=== PATIENT | female | born 1970 | race Caucasian/White ===

== ENCOUNTER 2017-02-10 18:14 | Inpatient (IN) | payer OTHER ==
[~2017-02-10] VITALS: Ht 172.7 cm; Wt 84.1 kg
--- NOTE | 2017-02-10 18:29 | NUR ---
PT BROUGHT IN TO ER BY [facility] VIA AMBULANCE. PER MEDIC, PT FOUND UNCONSIOUS AT HOME APPROX 45 MINS PRIOR TO ARRIVAL. PER MEDIC, PT TOOK HALF A BOTTLE OF NORCO STATING SHE WANTED TO HURT HERSELF.
--- NOTE | 2017-02-10 18:40 | NUR ---
PT PLACED ON 5150 HOLD BY [place] [employer] OFFICER TUCKER. HOLD PLACED IN PT CHART. PER OFFICER PD WAS CALLED OUT HOUSE APPROX 45MINS PRIOR TO EMS BEING CALLED FOR POSSIBLE SUICIDAL IDEATIONS, PD DID NOT PLACE PT ON HOLD AT THAT TIME AND STATES CCRT WAS ON SCENE WELL WHEN PD LEFT.
[2017-02-10 18:58] LABS: BASOPHIL % 0.2 % (0-2); PLATELET COUNT 232 x10^3mcL (130-400)
[2017-02-10 19:05] LABS: CALCIUM 8.4 mg/dL (8.5-10.1); CARBON DIOXIDE 33.5 mmol/L (21-32); CHLORIDE SERUM 104 mmol/L (98-107); CREATININE SERUM 0.8 mg/dL (0.6-1.0); GFR1 > 60 mL/min; GLUCOSE SERUM 86 mg/dL (74-106); POTASSIUM SERUM 4.1 mmol/L (3.5-5.1); SODIUM SERUM 139 mmol/L (136-145)
[2017-02-10 19:09] LABS: ALKALINE PHOSPHATASE 53 U/L (46-116); ALT/SGPT 30 U/L (14-59); AST/SGOT 19 U/L (15-37); BILIRUBIN TOTAL 0.4 mg/dL (0.20-1.00)
--- NOTE | 2017-02-10 19:12 | NUR ---
PT TOLERATED INSERTION OF GASTON CATH. STERILE TECHNIQUE USED. URINE SAMPLE SENT TO LAB
--- NOTE | 2017-02-10 19:15 | NUR ---
REPORT GIVEN TO PAUL SUMMERS.
[2017-02-10 19:16] LABS: ALBUMIN 3.2 g/dL (3.4-5.0); TOTAL PROTEIN, SERUM 5.9 g/dL (6.4-8.2)
[2017-02-10 19:17] LABS: microscopic required? YES; urine erythrocyte TRACE (NEGATIVE)
[2017-02-10] MEDS ORDERED: NITROFURANTOIN100 MG PO (19:20)
[2017-02-10] MEDS ORDERED: ULTRAM50 MG PO (19:20)
[2017-02-10] MEDS ORDERED: PREDNISONE1 MG PO (19:21)
--- NOTE | 2017-02-10 19:21 | NUR ---
FAMILY AT BEDSIDE VISITING WITH PT.
[2017-02-10] MEDS ORDERED: CYMBALTA30 M1 PO (19:22)
[2017-02-10] MEDS ORDERED: HYDROXYCHLOROQ200 MG PO (19:23)
[2017-02-10] MEDS ORDERED: HYDROCODONE BIT1 T30 (19:24)
[2017-02-10] MEDS ORDERED: PAXIL10 MG PO (19:26)
[2017-02-10 19:30] LABS: AMPHETAMINE QUAL UR POSITIVE (NEG <=1000)
[2017-02-10 19:30] LABS: T3 TOTAL 0.82 ng/mL
[2017-02-10 19:41] LABS: FREE T4 0.89 ng/dL (0.76-1.46); FREE THYROXINE INDEX 2.3 ug/dL (1.4-4.5)
[2017-02-10 20:27] LABS: MAGNESIUM 2.2 mg/dL (1.8-2.4); PHOSPHOROUS 4.4 mg/dL (2.5-4.9)
--- NOTE | 2017-02-10 20:34 | NUR ---
PT REPORT GIVEN TO WINTER, EXT [id number]. QUESTIONS AND CONCERNS ADDRESSED.
[2017-02-10 21:18] VITALS: BP 97/64
--- NOTE | 2017-02-10 21:29 | NUR ---
RECIEVED PATIENT FROM ED VIA GUERNEY, PATIENT UNABLE TO RESPOND TO ANSWERS, RESPONSIVE TO VERBAL AND TACTILE STIMULI, TELE # 30 SR, FAMILY AT BEDSIDE, NO C/O PAIN OR SOB AT THIS TIME, IV ACCESS TO LAC WNL, ORIENTED PATIENT TO ROOM AND SURROUNDINGS, BED IN LOW POSITION, BED RAILS UP X 2, CALL LIGHT WITHIN REACH, WILL ENDORSE CARE TO PRIMARY NURSE HUSSEIN SUMMERS
[2017-02-10 21:51] LABS: RED BLOOD CELLS 3.38 M/mm3 (4.10-5.10); TOTAL IRON BINDING CAPACITY 398 ug/dL (250-450)
[2017-02-10 21:52] LABS: IRON 29 ug/dL (50-170)
--- NOTE | 2017-02-10 22:23 | NUR ---
Lethargic. Opens eyes once in a while. No resp.distress noted. No cues of pain. Family at the bedside. On 5150. Sitter present.
[2017-02-11 01:12] LABS: BILIRUBIN DIRECT 0.11 mg/dL (0.0-0.2); BILIRUBIN TOTAL 0.36 mg/dL (0.20-1.00)
[2017-02-11 01:13] LABS: ALBUMIN 2.8 g/dL (3.4-5.0); TOTAL PROTEIN, SERUM 5.4 g/dL (6.4-8.2)
--- NOTE | 2017-02-11 03:26 | NUR ---
Awake at this time. Feeling hungry. Started on clear liquid diet. Jello given and tolerated well. No n/v noted. Will cont.to monitor.
--- NOTE | 2017-02-11 04:06 | NUR ---
Afebrile. No SOB noted. Denies pain. Awake and verbally responsive. SCD in place. Safety maintained. Remained on 5150 hold.
[2017-02-11 06:27] LABS: CALCIUM 8.3 mg/dL (8.5-10.1); CARBON DIOXIDE 28.9 mmol/L (21-32); CHLORIDE SERUM 105 mmol/L (98-107); CREATININE SERUM 0.7 mg/dL (0.6-1.0); GFR1 > 60 mL/min; GLUCOSE SERUM 88 mg/dL (74-106); POTASSIUM SERUM 3.8 mmol/L (3.5-5.1); SODIUM SERUM 138 mmol/L (136-145)
[2017-02-11 06:51] LABS: BASOPHIL % 0.5 % (0-2); PLATELET COUNT 206 x10^3mcL (130-400)
[2017-02-11 06:54] LABS: RED CELL DISTRIBUTION WIDTH 15.6 % (11.5-14.5)
--- NOTE | 2017-02-11 07:30 | NUR ---
PT DROWSY BUT OPENS EYES TO VERBAL STIMULI. ABLE TO SAY NAME AND . SPEECH SLOW AND SOFT TONE. GALE 3MM SLUGGISH. TEMP 98.1. TELE #30 SINUS RHYTHM RATE 70. RESP 16 EVEN. BREATH SOUNDS CLEAR. NO COUGH OR SOB. CONTINUOUS PULSE OX IN PLACE 100% ON 2L NC. HOB ELEVATED. ASPIRATION PRECAUTIONS. ABD SOFT, BOWEL TONES PRESENT. GASTON CATH DRAINS YELLOW URINE. TRACE EDEMA BLE. FAMILY STATES "THE LEGS GET SWOLLEN BECAUSE OF HER LUPUS." SCD IN PLACE. IV PATENT RIGHT HAND INFUSING NORMAL SALINE 100CC/HR. PT ON 5150. RESIDENTIAL COORDINATOR AT BEDSIDE TO MAINTAIN SAFETY. BED ALARM ON. FAMILY AT BEDSIDE. SIDE RAILS UP X2. CALL LIGHT IN REACH.
--- NOTE | 2017-02-11 08:25 | NUR ---
DR GONZALEZ AND MEDICAL TEAM IN ON ROUNDS. DISCUSSED PLAN OF CARE WITH PT AND FAMILY. TO CONTINUE TO OBSERVE PT RESP STATUS WITH CONTINUOUS, START ON CLEAR LIQ DIET. FATHER AND FAMILY AT BEDSIDE. QUESTIONS ANSWERED.
[2017-02-11 09:57] VITALS: BP 122/86
--- NOTE | 2017-02-11 10:40 | NUR ---
PT AWAKE, SITTING ON EDGE OF HER BED, AGITATED, PARANOID AND STATES "I WANT TO LEAVE AMA. WHERE IS DR RICHARDSON MY REGULAR DR. WHERE ARE MY HOME MEDICATIONS AND MY CELL PHONE." FATHER AND SISTER AT BEDSIDE. PT ALERT TO PERSON AND BUT CONTINUES TO BE FORGETFUL TO DATE, TIME AND PLACE. CALL TO DR PERRIN. MEDS REVIEWED. ALSO UPDATED WITH PTS PCP AND DR GOODWIN WHO SHE SEES. PT REQUESTS NORCO, CYMBALTA AND TRAMADOL THAT SHE TAKES FOR HER FIBROMYALGIA AND LUPUS. STATES "I GO THROUGH WITHDRAWLS IF I DONT TAKE IT." CUFF MAKER AT BEDSIDE TO MONITOR FOR SAFETY. CALL LIGHT IN REACH.
--- NOTE | 2017-02-11 10:45 | NUR ---
DR PERRIN HERE TO SPEAK WITH PT AND FAMILY. PRIMARY NURSE ALSO IN ROOM. PT PARANOID RE:LACK OF SUPPORT FROM FAMILY, HOME SITUATION, PTS OWN MEDICAL ISSUES. PT ACCUSES FAMILY OF MULTIPLE ISSUES AND CALLING THEM "LIARS. I DONT WANT YOU IN MY ROOM, GET YOUR THINGS AND GET OUT." DUE TO PATIENTS PARANOID STATE AT THIS MOMENT, FAMILY ASKED TO LEAVE ROOM TO GIVE PT TIME TO CALM HERSELF DOWN AND REFOCUS. DR PERRIN AND PRIMARY NURSE SAT WITH PT TO ALLOW HER TO VENT RE:HEALTH ISSUES WITH LUPUS AND FIBROMYALGIA, HOME SITUATION GEMA WITH 10 YEAR OLD SON, AND FAMILY SUPPORT AND INVOLEMENT IN HER LIFE. TEARFUL.
--- NOTE | 2017-02-11 11:00 | NUR ---
PT REFUSES PAXIL AND MACROBID, STATES "I DONT TAKE PAXIL, I ONLY TAKE MACROBID WHEN I HAVE A UTI. I DONT NEED IT NOW."
--- NOTE | 2017-02-11 11:11 | NUR ---
PER DR AYDIN BAEZ TO ADMINISTER NORCO ORDERED FOR C/O JOINT PAIN FROM LUPUS 04/26. GASTON CATH REMOVED ORDERED. IV CONTINUES PATENT. PT REMOVED CONTINUOUS PULSE OX. NO RESP DISTRESS AT THIS TIME. WILL CONTINUE TO MONITOR INTERMITTANTLY. AWAITING DR LEWIS EVALUATION. PT AGREEABLE TO SPEAK WITH DR LEWIS. FAMILY HAS GONE DOWN TO LOBBY TO GIVE PT SPACE AND TIME TO COMPOSE HERESELF. TOOL REPAIR TECHNICIAN AT BEDSIDE. [facility]. SNACK PROVIDED PRIOR TO LUNCH AT 1230. WILL CONTINUE TO OBSERVE.
--- NOTE | 2017-02-11 11:30 | NUR ---
GASTON CATH REMOVED ORDERED BY DR PERRIN.
--- NOTE | 2017-02-11 11:50 | NUR ---
PT SLEEPING. INDUSTRIAL MANAGEMENT TEACHER CONTINUES WITH SINUS RHYTHM. EASILY AROUSABLE, OPENS EYES TO VERBAL STIMULATION. WILL CONTINUE TO OBSERVE.
--- NOTE | 2017-02-11 12:30 | NUR ---
PT ABLE TO SIT AT SIDE OF BED FOR LUNCH MEAL. STATES "SO HUNGRY." REMAINS PARANOID AND TEARFUL AT TIMES RE:HOME SITUATION. ALLOWED TO VERBALIZE FEELINGS. CONTINUES ON 515, THERAPIST RADIATION AT BEDSIDE.
--- NOTE | 2017-02-11 14:30 | NUR ---
DR ARELLANO IN TO SPEAK WITH PT.
--- NOTE | 2017-02-11 14:42 | NUR ---
Initial Nutrition Assessment Dx: polysubstance abuse, 5150 PMHx: SLE, Fibromyalgia. PSHx: (Hysterectomy 2yrs ago), gastric bypass 10yr ago Labs: (02/11). Ca:8.3L, Alb:2.8L, HDL:89H, H/H:8.8/27L Meds: Colace, Prednisone, NS IVF, Prilosec, Zofran. Diet:Clear liquid PO Intake:02/10: 2 jello, 2 crackers, L:1 jello(02/11) L:>75% Ht: 68in, 5'8 Wt: 185#, 84kg BMI: 28.2kg/m2 (overweight) IBW:154#,70kg %IBW: 120% UBW:185# Age:46 Food Allergies:None Skin: intact Francois:20 Edema:trace to BLE. GI: Last BM:02/11 Nursing Trigger: unintentional wt loss>10# in past month. Pt was admitted with toxic encepholapathy 2/2 polysubctance intoxication. Pt was placed on a 5150 hold for suicidal ideation, per H&P. During visit, pt was kept asking when she was going to get discharged and how she wanted her phone. Observed pt eating her lunch and pt stated she has a fair appetite with no c/o N/V/D/C. Problem with: N:No V:No D: No C:No Problems with: Chewing:No Swallowing: No Current appetite: fair Recent wt change:no %wt change:0% Vitamin/Supplement use:MVI Special diet at home:Regular Physical activity:No Education: Pt declined education Estimated Nutritional Needs Based on current body weight 84kg Energy: 2100-2520kcal/d (25-30kcal/kg for adult maintenance) Protein: 67.2-84g/d (0.8-1.0 for adult maintenance) Fluid: 5725-0377 ml/d (1 ml/kcal) or per doctor Nutrition Diagnosis 1. Overweight related to possibly sedenatary lifestyle and overconsumption of kcals as evidenced by BMI:28.2kg/m2. Intervention 1.Recommend advance to regular diet as tolerated. 2. Encourage PO intake. Monitor/Evaluate Goal: PO intake at least 75% of estimated needs Monitor: PO intake, Labs, GI function F/U in 7 days as low risk:02/18
--- NOTE | 2017-02-11 15:10 | NUR ---
PT OOB, PULLED OUT IV AND TOOK OFF TELE MONITOR. PT ANXIOUS. STATES "WANTS TO GO HOME. I AM NOT GETTING MY REGULAR MEDICATIONS. I AM GOING THROUGH WITHDRAWLS FROM NOT TAKING MY NORCO AND ULTRAM LIKE I SHOULD." REVIEWED MED SCHEDULE AND REINFORCED NEED TO REMAIN IN HOSPITAL SHE IS ON 5150. PT UPSET, WANTING TO LEAVE. PAGE TO DR PERRIN.
--- NOTE | 2017-02-11 15:15 | NUR ---
HERE. ENTERERD PT ROOM WITH NURSE. PT BECAME VERBALLY ABUSIVE AND RAN OUT OF ROOM. ENCOURAGED PT TO RETURN TO ROOM BUT RAN DOWN HALLWAY LOOKING FOR ELEVATOR. PAGE TO SECURITY. PT ENDED UP ON 2N IN ELEVATOR THE DOORS WERE OPEN. SECURITY ARRIVED AND ENTERED ELEVATOR WITH PT. DOORS LOCKED OPEN. RN AND DR PERRIN AND DR ARELLANO ALSO NOW PRESENT IN ELEVATOR TRYING TO SPEAK WITH PT AND CALM HER DOWN. PT TEARFUL. STATES "I WANT TO GO HOME NOW. I WANT TO HAVE MY REGULAR MEDICATIONS. I WANT TO SPEAK WITH DR RICHARDSON AND MY THERAPIST."
--- NOTE | 2017-02-11 15:45 | NUR ---
PT REMAINS IN ELEVATOR WITH STAFF. DR PERRIN CALLED AND SPOKE WITH DR RICHARDSON TO REVIEW MEDICATIONS. DR ARELLANO ALSO SPOKE WITH DR RICHARDSON. MEDICATIONS REVIEWED WITH PT REPORTED BY DR RICHARDSON. SENT UP PTS CELL PHONE AND GIVEN TO PT.
--- NOTE | 2017-02-11 16:00 | NUR ---
PT IN AGREEMENT AT THIS TIME TO RETURN TO ROOM. ANXIOUS TO HAVE HER NORCO ORDERED. IV #22 ANGIO RESTARTED TO RAC AND IVF RESUMED NORMAL SALINE 100CC/HR. PT ASSISTED UP TO BATHROOM. BACK TO BED. MADE COMFORTABLE. CORPORATE ADMINISTRATIVE ASSISTANT AT BEDSIDE. CALL LIGHT IN REACH. PT ABLE TO CALL AND SPEAK WITH HER THERAPIST.
--- NOTE | 2017-02-11 16:45 | NUR ---
DR PERRIN HERE TO SPEAK WITH PT. MED WITH NORCO 10/325MG PO AT THIS TIME. PT ANXIOUS. STATES "I TAKE TWO TABLETS 3 TIMES A DAY. THIS IS STILL NOT RIGHT."
--- NOTE | 2017-02-11 16:48 | NUR ---
REVIEWED MEDS WITH PT. ORDERED FOR ONE TIME DOSE OF NORCO 5/325. PT ABLE TO READ NUMBERS ON NORCO TABLET AND ALERT TO KNOW THAT THIS WAS A 5/325 AND NOT HER NORMAL 10/325. ANGRY THAT HER MEDS WERE NOT BEING GIVEN SHE NORMALLY TAKES AT HOME. STATES "I WILL TAKE IT NOW BUT I WANT ANOTHER 5/325 NOW." REVIEWED MEDICATION SCHEDULE. PT RECEIVED PHONE CALL AND WAS DISTRACTED AND DID NOT PERSUE MED ISSUE AGAIN AT THIS TIME. WILL CONTINUE TO MONITOR.
--- NOTE | 2017-02-11 17:10 | NUR ---
REVIEWED PREDNISONE DOSE. DR PERRIN AND DR ARELLANO IN AGREEMENT FOR PT TO TAKE 1MG PO AT THIS TIME. REVIEWED WITH PT. VERBALIZED UNDERSTANDING. MED WITH 1MG PO ORDERED. PT STATES "HUNGRY." SNACK PROVIDED.
--- NOTE | 2017-02-11 17:45 | NUR ---
PT ATE DINNER MEAL QUICKLY, ORDERED CHEESEBURGER AND SOUP WELL. ATE PEACHES FROM TRAY. THEN THREW UP. STATES "PEACHES MAKE ME SICK." DECLINES ZOFRAN FOR NAUSEA. ASSIST BACK TO BED. IV CONTINUES PATENT.
--- NOTE | 2017-02-11 18:15 | NUR ---
PT SLEEPING. NO DISTRESS.
--- NOTE | 2017-02-11 18:45 | NUR ---
PT SLEEPING AT THIS TIME. NO DISTRESS. WILL CONTINUE TO MONITOR.
--- NOTE | 2017-02-11 19:20 | NUR ---
REPORT WITH RANDY SUMMERSASSISTANT PROFESSOR OF ARCHAEOLOGYPHYSICAL THERAPY PROFESSOR. PT SLEEPING. NO DISTRESS. CONTINUES ON 5150. WASTE DISPOSAL PLANT OPERATOR AT BEDSIDE. CARE ENDORSED AT THIS TIME.
--- NOTE | 2017-02-11 19:47 | NUR ---
PT ASLEEP BUT EASILY AROUSABLE, ALERT AND ORIENTED WITH PERIODS OF FORGETFUL, DENIES HEADACHE OR DIZZINESS, BREATHING EVEN AND UNLABORED, NO SOB, LUNG SOUNDS DIMINISHED, ON ROOM AIR WITH NO RESP DISTRESS NOTED, ON TELE#30 NSR, DENIES CHEST PAIN, IVF INFUSING WELL, PULSES PALPABLE, EDEMA NOTED TO BLE, GENERALIZED WEAKNESS, ABD SOFT AND FLAT WITH ACTIVE BS, NO BM AT THIS TIME, DENIES ABD PAIN, DENIES ANY PROBLEM WITH VOIDING, PT EASILY AGITATED AND IRRITATED, SITTER AT BEDSIDE, NO DISTRESS NOTED, WILL KEEP TO MONITOR.
[2017-02-11 20:42] VITALS: BP 101/63
[2017-02-12 05:17] VITALS: BP 120/78
--- NOTE | 2017-02-12 06:15 | NUR ---
PT ASLEEP BUT EASILY AROUSABLE, SLEPT ON AND OFF WHOLE NIGHT, GOOD APPETITE DURING THE NIGHT, IVF INFUSING WELL, CALM AND COOPERATIVE WITH CARE SINCE BEGINNING OF SHIFT, NO DISTRESS NOTED, WILL KEEP TO MONITOR.
[2017-02-12 07:06] LABS: CALCIUM 8.2 mg/dL (8.5-10.1); CARBON DIOXIDE 30.4 mmol/L (21-32); CHLORIDE SERUM 107 mmol/L (98-107); CREATININE SERUM 0.8 mg/dL (0.6-1.0); GFR1 > 60 mL/min; GLUCOSE SERUM 84 mg/dL (74-106); MAGNESIUM 2.1 mg/dL (1.8-2.4); PHOSPHOROUS 4.8 mg/dL (2.5-4.9); SODIUM SERUM 140 mmol/L (136-145)
[2017-02-12 07:33] LABS: BASOPHIL % 0.4 % (0-2); PLATELET COUNT 222 x10^3mcL (130-400)
[2017-02-12 07:35] LABS: RED CELL DISTRIBUTION WIDTH 16.2 % (11.5-14.5)
--- NOTE | 2017-02-12 08:00 | NUR ---
PT AWAKE AND ALERT TO PERSON, AND PLACE. ALERT TO MONTH AND YEAR. FORGETFUL TO TIME. REORIENTED. PT CONTINUES TO ASK WHY SHE IS HERE. "DO NOT REMEMBER TAKING TO MANY PILLS AT HOME. THAT IS WHAT MY FAMILY HAS SAID." SPEECH CLEAR. FOLLOWS COMMANDS. TEARFUL AT TIMES. VG=889/78. TELE #30 SINUS RHYTHM WITH OCCASIONAL PVC. DENIES CHEST DISCOMFORT. RESP 18 EVEN. BREATH SOUNDS CLEAR. NO COUGH OR SOB. PULSE OX 98% RA. ABD SOFT, BOWEL TONES PRESENT. VOIDING QS, REPORTS "HAVING SOME BURNING WITH URINATION. I TAKE MACROBID AT HOME SOMETIMES WHEN I GET UTI." PT IS ON MACROBID 50MG BID AT THIS TIME. LEGS LARGE, NO PITTING EDEMA. PULSES PRESENT. IV PATENT RAC INFUSING NORMAL SALINE 100CC/HR. REPORTS "I AM HAVING PAIN 8/10 FROM MY FIBROMYALGIA. I NEED MY NORCO EVERY 4 HOURS." SIDE RAILS UP X 2. CALL LIGHT IN REACH.
--- NOTE | 2017-02-12 08:25 | NUR ---
DR MILLIGAN AND MEDICAL TEAM IN ON ROUNDS. CHARGE AND PRIMARY NURSE PRESENT. REVIEWED PLAN OF CARE. TO HAVE PSYCHOLOGIST RE FIDEL PT TODAY PER PT REQUEST. PT VERBALIZED UNDERSTANDING. REQUESTS PT ADVOCATE TO SPEAK WITH. CALL TO UTILITIES SERVICE INVESTIGATOR. GALLO MAX RNBOOKKEEPING TEACHER WILL BE UP TO SPEAK WITH PT.
--- NOTE | 2017-02-12 09:40 | NUR ---
PT REPORTS "HAVING BURNING WITH URINATION, BAD UTI." PT VOIDED. SAMPLE TO LAB. ADMISSION URINE SAMPLE NEGATIVE. DR RAND NOTIFIED.
[2017-02-12 10:09] VITALS: BP 123/78
[2017-02-12 11:00] LABS: UA SPECIFIC GRAVITY >=1.030 (1.005-1.035); microscopic required? YES; urine erythrocyte TRACE (NEGATIVE)
--- NOTE | 2017-02-12 12:45 | NUR ---
DR RAND IN TO SPEAK WITH PT AND REVIEW DISCHARGE PLANS AFTER SEEN BY DR LEWIS. MEDS REVIEWED. TO CONTINUE MACROBID AND PYRIDIUM FOR UTI. PAIN MED SCHEDULE REVIEWED. PT VERBALIZED UNDERSTANDING. TO FOLLOWUP WITH DR RICHARDSON IN 3 BUSINESS DAYS. PT VERBALIZED UNDERSTANDING.
[2017-02-12] MEDS ORDERED: NITROFURANTOIN100 MG PO ×2 (13:06→14:12)
[2017-02-12] MEDS ORDERED: PYR100 PO ×2 (13:07→14:12)
[2017-02-12] MEDS ORDERED: PREDNISONE1 MG PO ×3 (13:07→14:12)
[2017-02-12] MEDS ORDERED: BD LACTINEX1.4 MG PO ×2 (13:08→14:12)
[2017-02-12 13:30] VITALS: BP 123/78
--- NOTE | 2017-02-12 13:30 | NUR ---
DR LEWIS HERE AND HAS EVALUATED PT. MEDS REVIEWED. OK TO BE RELEASED HOME. FRIEND RAMÓN HERE TO TAKE PT HOME. IV REMOVED CATH TIP INTACT. TELE REMOVED AND RETURNED TO TELE UNIT. PT GETTING DRESSED.
--- NOTE | 2017-02-12 14:00 | NUR ---
REVIEWED DISCHARGE INFORMATION WITH PT INCLUDING MEDICATIONS, ACTION, SIDE EFFECTS AND SCHEDULE. DR RAND TO CHANGE PHARMACY TO [facility] IN [place] ON [facility] DUE TO [facility] CLOSED ON WEEKEND. PT VERBALIZED UNDERSTANDING OF MEDICATION REGIMEN AND NEED TO CALL DR RICHARDSON ON TUESDAY FOR APPOINTMENT WITHIN THREE DAYS. PT AMBULATORY. DC AT THIS TIME TO PRIVATE CAR WITH FRIEND RAMÓN.
== END 2017-02-12 14:00 | disposition home or self-care (01) | DRG 917 ==
LOC: ED 18:14 → DU 19:39
PROVIDERS: Emergency Medicine; ADMIT Family Medicine
DX: T50.7X2A Poisoning by analeptics and opioid receptor antagonists, intentional self-harm, initial encounter (principal); N17.0 Acute kidney failure with tubular necrosis; G92 Toxic encephalopathy; E44.1 Mild protein-calorie malnutrition; R45.851 Suicidal ideations; F33.1 Major depressive disorder, recurrent, moderate; T40.7X2A Poisoning by cannabis (derivatives), intentional self-harm, initial encounter; T43.622A Poisoning by amphetamines, intentional self-harm, initial encounter; M79.7 Fibromyalgia; G89.29 Other chronic pain; D64.9 Anemia, unspecified; M32.9 Systemic lupus erythematosus, unspecified; E83.51 Hypocalcemia; R73.03 Prediabetes; F17.210 Nicotine dependence, cigarettes, uncomplicated; F42.9 Obsessive-compulsive disorder, unspecified; Z98.84 Bariatric surgery status; Z68.28 Body mass index [BMI] 28.0-28.9, adult; Y92.028 Other place in mobile home as the place of occurrence of the external cause
CPT/HCPCS: 36600; 83880; 84439; G0480; J7030; J7506; Q0092